=== PATIENT | female | born 1955 | race Caucasian/White ===

== ENCOUNTER → 2018-06-20 | Outpatient (CLI) | payer BC ==
--- NOTE | 2018-06-20 12:21 | XR ---
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 Following the intravenous administration of 100 mL Isovue-370 sequential images were obtained over the kidneys ureter and bladder. Post void image is obtained. FINDINGS: Nonspecific bowel gas is present. Scoliosis is present. Degenerative disc changes are prese nt notably L2-3 and L4 L5 S1. There is prompt uptake and excretion of contrast to the kidneys. Renal contours appear normal. Renal calyces infundibula and renal pelves appear normal. Ureters follow a tortuous course to the uri nary bladder. Urinary bladder fills normally without intraluminal or extramural defects. No hydroneph rosis or hydroureter is evident. There is a normal post void residual. Phleboliths are within the rig ht hemipelvis. IMPRESSION: 1. Normal IVP.
== END | disposition home or self-care (01) ==
LOC: RADFLMAIN 09:54
PROVIDERS: ATTEND Family Medicine
DX: R31.9 Hematuria, unspecified (principal)
CPT/HCPCS: 74400; Q9967

== ENCOUNTER 2023-02-21 08:34 | Day surgery (SDC) | payer MEDICARE ==
[2023-02-21] MEDS ORDERED: LACTATED RINGERS 1,000 ML IV ONE ×2 (09:16)
[2023-02-21 09:27] VITALS: TEMP 97.6
[2023-02-21] MEDS ORDERED: LACTATED RINGERS 1,000 ML IV SCH (09:30)
[2023-02-21] MEDS ORDERED: PROPOFOL 10 MG/ML 20 ML VIAL IV ONE (09:35)
--- NOTE | 2023-02-21 09:52 | P.PCN ---
Date of Procedure: 02/21/23 Procedure(s) Performed: BRIEF HISTORY: Patient is a 67-year-old pleasant white male scheduled for an elective colonoscopy as a part of screening for colorectal neoplasia PROCEDURE PERFORMED: Colonoscopy with snare polypectomy. PREOPERATIVE DIAGNOSIS: Screening for colon cancer. . IV sedation per Anesthesia. PROCEDURE: After informed consent was obtained, the patient, was brought into the endoscopy unit. IV sedation was administered by Anesthesia under continuous monitoring. Digital rectal examination was normal. Initially the Olympus CF-160 flexible video colonoscope was then inserted in the rectum, gradually advanced into the cecum without any difficulty. Careful examination was performed as the scope was gradually being withdrawn. Ileocecal valve and the appendiceal orifice were visualized and appeared normal. Prep was excellent. Mucosa of the cecum, ascending colon, transverse colon, descending colon, sigmoid colon, and rectum appeared normal. There was a 1 cm distal rectal polyp status post with intermittent was removed by snare polypectomy. Retroflexion was performed in the rectum and no lesions were seen. The patient tolerated the procedure well. IMPRESSION: 1 cm distal rectal polyp status post snare polypectomy. Rest of the colon appeared normal RECOMMENDATIONS: Findings of this examination were discussed with the patient as well as her family. She was advised to follow with the biopsy results. If the biopsy reveals adenoma she can have a repeat colonoscopy in 3 years..
[2023-02-21 11:02] VITALS: BP 116/79; PULSE 79; RESP 16
== END 2023-02-21 10:50 | disposition home or self-care (01) ==
LOC: ORWHC2ENDO 08:34
PROVIDERS: ATTEND Internal Medicine Gastroenterology
DX: Z12.11 Encounter for screening for malignant neoplasm of colon (principal); K62.1 Rectal polyp; E07.9 Disorder of thyroid, unspecified; Z79.899 Other long term (current) drug therapy; F12.10 Cannabis abuse, uncomplicated; M19.90 Unspecified osteoarthritis, unspecified site; Z79.890 Hormone replacement therapy; Z98.890 Other specified postprocedural states
CPT/HCPCS: 88305; 45385; J2704

== ENCOUNTER → 2023-12-04 | Outpatient (CLI) | payer MEDICARE ==
--- NOTE | 2023-12-04 14:49 | MM ---
Reason for Exam: Screening (asymptomatic). Last screening mammogram was performed 12 month(s) ago. Patient History: Menarche at age 14. First Full-Term at age 26. Postmenopausal. Risk Values: Lidia 5 year model risk: 1.5%. NCI Lifetime model risk: 5.4%. Prior Study Comparison: 10/23/2020 Bilateral MG 3D screening mammo w/cad, [facility]. 11/11/2021 Bilateral MG 3D screening mammo w/cad, [facility]. 12/01/2022 Bilateral MG screening mammo w CAD, [facility]. Tissue Density: There are scattered areas of fibroglandular density. Findings: Analyzed By CAD. The pattern is symmetrical. No significant interval change. No suspicious groups of microcalcifications, spiculated or lobular masses, architectural distortion or other secondary signs of malignancy are mammographically apparent. Overall Assessment: Benign, BI-RAD 2 Management: Screening Mammogram of both breasts in 1 year. A negative mammogram report should not preclude additional follow up of suspicious palpable abnormalities. Patient should continue monthly self breast exam. A clinical breast exam by your physician is recommended on an annual basis and results should be correlated with mammographic findings. Note on Lidia scores and lifetime risk: 1. A Lidia score greater than 3% is considered moderate risk. If this is the case, consider specialist referral to assess eligibility for a risk reducing agent. 2. If overall lifetime risk for the development of breast cancer is 20% or higher, the patient may qualify for future screening with alternating mammogram and breast MRI. [facility], , 12/04/2023 2:45 PM. Electronically signed and approved by: Syd Mathis D.O. Radiologis
== END | disposition home or self-care (01) ==
LOC: RADMAMWWP 09:08
PROVIDERS: ATTEND Family Medicine
DX: Z12.31 Encounter for screening mammogram for malignant neoplasm of breast
CPT/HCPCS: 77063; 77067